=== PATIENT | male | born 1945 | race Caucasian/White ===

== ENCOUNTER → 2018-03-21 | Outpatient (CLI) | payer MEDICARE ==
--- NOTE | 2018-03-21 12:13 | CT ---
EXAMINATION TYPE: CT ankle LT wo con DATE OF EXAM: 03/21/2018 COMPARISON: NONE HISTORY: Left ankle pain CT DLP: [address] of the left ankle with reconstruction imaging. TECHNIQUE: Unenhanced CT of the left ankle was performed with bone and soft tissue window settings bonilla bmitted in the axial coronal and sagittal planes. At a separate workstation 3-D TR imaging was obtai cameron. FINDINGS: There is severe narrowing of the lateral tibiotalar joint space with widening noted medially. There i s underlying bony sclerosis and mild subchondral cyst formation. There is associated bony spur format ion. Loose body is seen anterior to the talar neck measuring 1.2 cm. Additional loose body noted at the la teral tibiotalar region measuring 4.1 mm. I do not see evidence for acute fracture. Soft tissue swelling noted laterally and to a lesser extent medially. No osseous lesions identified. IMPRESSION: 1. Advanced features of osteoarthritis. Tibiotalar instability is noted.
== END | disposition home or self-care (01) ==
LOC: RADCTMAIN 11:28
PROVIDERS: ATTEND Orthopaedic Surgery
DX: M19.072 Primary osteoarthritis, left ankle and foot (principal); M25.372 Other instability, left ankle; E11.9 Type 2 diabetes mellitus without complications

== ENCOUNTER → 2018-04-05 | Outpatient (CLI) | payer MEDICARE ==
--- NOTE | 2018-04-05 13:33 | CT ---
EXAMINATION TYPE: CT lower extremity LT wo con DATE OF EXAM: 04/05/2018 COMPARISON: CT left ankle March 21, 2018 HISTORY: Prophecy protocol. Valgus deformity left ankle. Pain, primary osteoarthritis, and edema also per order. Left valgus ankle arthritis also per order. CT DLP: 456 mGycm Automated exposure control for dose reduction was used. FINDINGS: Exam is for surgical planning enough for diagnostic purposes. Imaging of bilateral knees and left ank le is acquired. Asymmetric advanced degenerative changes to left ankle versus right ankle are redemon strated. There is moderate diffuse subcutaneous edema soft tissue swelling in both ankles again seen. Please refer to prior CT ankle report for complete details about degenerative findings. IMPRESSION: ABOVE
== END ==
LOC: RADCTMAIN 12:32
PROVIDERS: ATTEND Orthopaedic Surgery
DX: M79.89 Other specified soft tissue disorders (principal); M19.072 Primary osteoarthritis, left ankle and foot; E11.9 Type 2 diabetes mellitus without complications

== ENCOUNTER → 2018-04-11 | Outpatient (CLI) | payer MEDICARE ==
[2018-04-11 12:44] LABS: HCT 42.1 % (39.0-53.0); HGB 13.6 gm/dL (13.0-17.5); MCH 28.7 pg (25.0-35.0); MCHC 32.3 g/dL (31.0-37.0); MCV 88.7 fL (80.0-100.0); Platelet Count 216 k/uL (150-450); RBC 4.75 m/uL (4.30-5.90); RDW 14.1 % (11.5-15.5); WBC 6.5 k/uL (3.8-10.6)
[2018-04-11 12:54] LABS: Appearance,Urine Cloudy (Clear); Bilirubin,Urine Negative (Negative); Blood,Urine Negative (Negative); Color,Urine Yellow; Glucose,Urine (UA) Negative (Negative); Ketones,Urine Negative (Negative); Leukocyte Esterase,Urine Negative (Negative); Mucus,Urine Rare /hpf; Nitrite,Urine Negative (Negative); PH, Urine 5.5 (5.0-8.0); Protein,Urine Trace (Negative); Specific Gravity,Urine 1.017 (1.001-1.035); Urobilinogen,Urine <2.0 mg/dL (<2.0); WBC,Urine 1 /hpf (0-5)
[2018-04-11 12:56] LABS: INR 1.2 (<1.2); Prothrombin Time 11.6 sec (9.0-12.0)
[2018-04-11 13:17] LABS: Albumin 3.6 g/dL (3.5-5.0); Calcium 9.5 mg/dL (8.4-10.2); Potassium 4.3 mmol/L (3.5-5.1); Total Bilirubin 1.4 mg/dL (0.2-1.3)
== END | disposition home or self-care (01) ==
LOC: LABPAT 11:30
PROVIDERS: ATTEND Orthopaedic Surgery
DX: Z01.818 Encounter for other preprocedural examination (principal); Z01.812 Encounter for preprocedural laboratory examination; M19.072 Primary osteoarthritis, left ankle and foot
CPT/HCPCS: 36415; 80053; 81001; 85027; 85610; 85730; 87070; 93005

== ENCOUNTER 2018-04-24 13:00 | Inpatient (IN) | payer MEDICARE ==
[2018-04-25 11:44] VITALS: BMI 27.2
[2018-04-30] MEDS ORDERED: HYDROmorphone 0.5 MG/0.5 ML SYRINGE IVP PRN (16:53)
[2018-04-30] MEDS ORDERED: fentaNYL (PF) 50 MCG/ML 2 ML AMP IV PRN (16:53)
[2018-04-30] MEDS ORDERED: ONDANSETRON 4 MG/2 ML VIAL IVP PRN (16:53)
[2018-04-30] MEDS ORDERED: LACTATED RINGERS 1,000 ML IV SCH (17:00)
[2018-05-01] MEDS ORDERED: ceFAZolin IN SWFI 2 GM/20 ML SYRINGE IVP ONE (05:00)
[2018-05-01] MEDS ORDERED: fentaNYL (PF) 50 MCG/ML 2 ML AMP IV PRN (06:49)
[2018-05-01] MEDS ORDERED: LACTATED RINGERS 1,000 ML IV SCH ×2 (06:49→08:30)
[2018-05-01] MEDS ORDERED: ONDANSETRON 4 MG/2 ML VIAL IVP PRN ×2 (06:49→08:23)
[2018-05-01] MEDS ORDERED: HYDROmorphone 0.5 MG/0.5 ML SYRINGE IVP PRN ×3 (06:49→08:23)
[2018-05-01 07:11] LABS: Glucose,Whole Blood 111 mg/dL (75-99)
[2018-05-01] MEDS ORDERED: MIDAZOLAM 2 MG/2 ML VIAL IVP ONE (08:02)
[2018-05-01] MEDS ORDERED: HYDROcodone/APAP 5-325MG 1 EACH TAB PO PRN (08:23)
[2018-05-01] MEDS ORDERED: NALOXONE 0.4 MG/ML 1 ML VIAL IV PRN (08:23)
[2018-05-01] MEDS ORDERED: MAGNESIUM HYDROXIDE 2,400 MG/10 ML CUP PO PRN (08:23)
[2018-05-01] MEDS ORDERED: SODIUM CHLORIDE 0.9% 1,000 ML IV SCH (08:30)
[2018-05-01] MEDS ORDERED: ONDANSETRON 4 MG/2 ML VIAL ONE (08:50)
[2018-05-01] MEDS ORDERED: PROPOFOL 10 MG/ML 20 ML VIAL IV ONE (08:50)
[2018-05-01] MEDS ORDERED: LIDOCAINE 1% INJ 10MG/ML (20 ML MDV) ONE (08:50)
[2018-05-01] MEDS ORDERED: ePHEDrine SULFATE/0.9% NACL/PF 50 MG/5 ML SYRINGE IV ONE (08:50)
[2018-05-01] MEDS ORDERED: SUCCINYLCHOLINE CHLORIDE 100 MG/5 ML SYR IV ONE (08:50)
[2018-05-01] MEDS ORDERED: fentaNYL (PF) 50 MCG/ML 2 ML AMP ONE (08:50)
[2018-05-01] MEDS ORDERED: MIDAZOLAM 2 MG/2 ML VIAL ONE (08:50)
--- NOTE | 2018-05-01 09:21 | P.ONQ ---
Anesthesiology Proc Note - PNB - Peripheral Nerve Block Performed Left Popliteal Single Time Out Performed: Yes (803) Procedure Start Time: 08:04 Procedure Stop Time: 08:10 Indication: Acute Post-Operative Pain, Dx/Pain Location (Left Ankle Pain), Requested by physician Sedation Type: Sedate with meaningful contact maintained Preparation: Sterile Prep Position: Supine Catheter: None Needle Types: Touhy Needle Size: 50mm (2") Needle Gauge: 21 Injectate: 0.5% Ropivacaine (see comment for volume) (30ml)
[2018-05-01] MEDS ORDERED: LACTATED RINGERS 1,000 ML IV ONE (09:22)
--- NOTE | 2018-05-01 11:04 | FL ---
Fluoroscopy History: ORIF Left ankle ORIF. Dr. Lundberg. FL time 44 sec. 6 OR films scanned.
[2018-05-01 11:48] LABS: Glucose,Whole Blood 113 mg/dL (75-99)
--- NOTE | 2018-05-01 11:51 | P.OP ---
Date of Procedure: 05/01/18 Preoperative Diagnosis: 1. Left ankle arthritis 2. Left gastrocnemius equinus contracture Postoperative Diagnosis: Same Procedure(s) Performed: 1. Left total ankle arthroplasty with implant 2. Left gastrocnemius recession obtained through a separate incision 3. Application of short-leg splint by physician, left Implants: Adviqo Infinity Total Ankle Replacement size 4 tibial tray, size 3 INBONE talus, 7mm poly Anesthesia: GIGI Surgeon: Ga Lundberg Tube Trailer Filler #1: Judith Molina Estimated Blood Loss (ml): 25 IV fluids (ml): 1,200 Pathology: none sent Condition: stable Disposition: PACU Indications for Procedure: The patient is a 72-year-old male with a long-standing history of left valgus ankle arthritis and a mild pes planovalgus foot deformity. The patient failed a long course of nonsurgical treatment including activity modification, anti- inflammatory pain medication, orthotics, bracing, and physical therapy. He presented requesting surgery. My recommendation was to perform a total ankle arthroplasty and realign his foot as necessary with a medializing calcaneal osteotomy if the implant did not correct the valgus deformity at his ankle. We also discussed releasing his tight gastrocnemius. We discussed the potential risks and complications of surgery including but not limited to risk of anesthesia, risk of superficial infection, risk of deep infection, risk of delayed wound healing, risk of damage to local blood vessels or nerves, risk of deep infection at the implant, risk of intraoperative fractures, risk of postoperative fractures, risk of loosening of the implants, risk of catastrophic failure of the components, risk of chronic pain, risk of chronic swelling, risk of her inability to regain preinjury level of function, risk of DVT, risk of PE, risk of need for further surgery, and possibly loss of life or limb. The patient voiced his understanding of these potential complications and provided his verbal and written consent to go forward with surgery. Description of Procedure: The patient was identified in preop holding and the correct left leg was marked my initials. I reviewed the consent form with the patient health his questions were answered and the patient was then brought back to the operating room. He was positioned on the or table and a general anesthetic and preoperative antibiotics were administered. All bony prominences were well-padded. A tourniquet was applied to the proximal aspect of the left leg. A bone foam bump was placed under the buttock internally rotating the leg to neutral. A ramp was placed under the leg elevated to facilitate imaging. The contralateral extremity is held to the table with foam and tape. The left leg was then prepped and draped in standard sterile fashion. Prior to starting surgery timeout was performed identifying the correct patient, operative extremity, and procedure. The patient's leg was then elevated, exsanguinated with an Esmarch bandage, and the tourniquet was inflated to 250 mmHg. I began by performing an isolated gastrocnemius recession. A 3 cm incision was marked out over the posterior medial calf. Skin incision was made with a scalpel. Dissection was carried down to the superficial fascia which was incised longitudinally in line with the skin incision. I bluntly developed the interval between the gastrocnemius aponeurosis and superficial fascia. The sural nerve was identified to be adherent to the superficial fascia. The gastrocnemius aponeurosis was sharply released from lateral to medial in its entirety. There is a significant increase in dorsiflexion after the gastrocnemius and then released. The wound was then copiously irrigated and closed in layers. Attention was then turned to the ankle. Prior to starting C-arm fluoroscopy was brought in and I verified that the valgus deformity at the ankle is passively correctable to neutral. I then marked out a straight anterior incision over the ankle. Skin incision was made with a scalpel. Dissection was carried down carefully to the subcutaneous tissue. The superficial peroneal nerve was identified and carefully retracted. The extensor retinaculum was sharply incised. The interval between the tibialis anterior and EHL was identified. Crossing blood vessels over the capsule were controlled with electrocautery. The capsule was then incised longitudinally in line with the skin incision. Soft tissue was then sharply debrided off of the anterior surface of the distal tibia to facilitate placement of the custom guide. The custom guide was then fit into place finding it sweet spot. K wires were placed and the alignment was verified with fluoroscopy and confirmed against the preoperative templating. The custom block was then taken off and the cutting jig was placed over the wires. The tibial corners were drilled. The cutting guide was then screwed into place. The ankle was held in neutral and the talus was pinned through the guide. The K wires were cut flush with the guide. A reciprocating saw was then used to make the remaining tibial and talar cuts. The cutting guide was removed and the tibial bone was removed en bloc. The tear cut was not completed through the guide so I saw was used to cut the remaining talus by hand. Both cuts appeared flat. The wound was copiously irrigated. The tibial base tray was then placed over the remaining wires and sized to a standard. The broaches were then gently tapped starting with the posterior approach followed by the 2 anterior broaches. I then floated a size 3 talus component until it found it sweet spot. The position of the talar component was marked with a marker and then verified with fluoroscopy. It was pinned into place and the anterior pegs were drilled followed by the central slot for the stem. Final implants were then dispensed. The wound was copiously irrigated. The tibial baseplate was gently tapped into place and verified both visually and radiographically that it was fully seated. The talar component was then dispensed and gently tapped into place once again verifying visually and radiographically that it was fully seated. I trialed with a size 7 mm poly-which felt stable. A final 7 mm poly-was dispensed and placed between the implants. Final fluoroscopic images were taken including a true mortise view, varus stress, valgus stress, true lateral, maximum dorsiflexion, and maximum plantar flexion. The wound was once again copiously irrigated. The capsule was closed with interrupted 0 Vicryl. The retinaculum was closed with interrupted 0 Vicryl. The deep subcu was reapproximated using 2-0 Vicryl. The skin was closed with 3-0 nylon horizontal mattress stitches. The tourniquet was let down for total tourniquet time of 93 minutes. All instrument, sponge, and sharp counts were correct. A sterile dressing consisting of Betadine soaked Adaptic, 4 x 4, and web roll was applied. The patient was then awoken from his anesthetic, transferred to a gurney, and brought to PACU having cut the procedure well. Judith Molina PA-C was required a skilled assistant counsel for patient positioning, surgical exposure, retraction, placement of implants, closure of wound, and application of splint. Plan: The patient is going to be admitted for IV antibiotics, pain control, and an internal medicine consult. He is to remain strictly nonweightbearing on his operative leg. He can discharge home tomorrow or [place] when his pain is controlled.
[2018-05-01] MEDS ORDERED: PROMETHAZINE INJ 25 MG/ML 1 ML VIAL IVPB ONE (11:53)
[2018-05-01] MEDS: hydrALAZINE HCL 20 MG/ML 1 ML VIAL IVP ONE ×2 (11:56→12:19)
[2018-05-01] MEDS ORDERED: METOCLOPRAMIDE 5 MG/ML 2 ML VIAL IVP ONE (12:06)
--- NOTE | 2018-05-01 12:36 | XR ---
EXAMINATION TYPE: XR ankle limited LT DATE OF EXAM: 05/01/2018 COMPARISON: NONE HISTORY: Pain TECHNIQUE: 6 paper images are submitted. FINDINGS: Tibiotalar prosthesis is in place and appears to be appropriately seated. Alignment is ashvin omic. IMPRESSION: 1. Tibiotalar prosthesis.
[2018-05-01] MEDS: ENOXAPARIN 40 MG/0.4 ML SYRINGE SQ SCH (14:44)
[2018-05-01] MEDS ORDERED: NITROGLYCERIN SL TABS 0.4 MG TAB SUBLINGUAL PRN (16:13)
[2018-05-01 16:56] LABS: Glucose,Whole Blood 104 mg/dL (75-99)
[2018-05-01] MEDS: SODIUM CHLORIDE 0.9% 1,000 ML IV SCH (17:14)
[2018-05-01] MEDS: ceFAZolin IN SWFI 2 GM/20 ML SYRINGE IVP SCH (17:15)
[2018-05-01] MEDS ORDERED: HYDROmorphone 1 MG/ML 1 ML SYRINGE IVP PRN ×2 (17:29→17:30)
--- NOTE | 2018-05-01 17:36 | CONS ---
CONSULTATION DATE OF SERVICE: 05/01/2018. REASON FOR CONSULTATION: Advice regarding diabetes mellitus and other multiple medical issues requested by Dr. Lundberg. HISTORY OF PRESENT ILLNESS: This is a 72-year-old gentleman with a past medical history of multiple medical problems including diabetes mellitus, history of CAD, hyperlipidemia, hypertension, DJD being followed by Dr. Kelly in the outpatient setting underwent left total ankle arthroplasty with implant by Dr. Lundberg. There is no history of fever, rigors. No headache, loss of consciousness, seizures. Patient is complaining of minimal cough. PAST MEDICAL HISTORY: CAD, history of hypertension, DJD, history of CAD and stent. MEDICATIONS: Home medications are: 1. Glucophage 500 mg p.o. b.i.d. 2. Apresoline 100 mg p.o. b.i.d. 3. Benemid 500 mg p.o. q.a.m. 4. Nitrostat 0.4 mg p.r.n. 5. Cozaar 100 mg q.a.m. 6. Lipitor 80 mg q.a.m. 7. Aspirin 81 mg. 8. Coreg 3.25 mg q.h.s. and 6.5 mg q.a.m. ALLERGIES: NORVASC, CODEINE and DILAUDID. FAMILY HISTORY: History of myocardial infarction, suicide. SOCIAL HISTORY: History of occasional alcohol. No history of smoking. No history of substance abuse. REVIEW OF SYSTEMS: ENT: No diminished hearing or vision. CARDIOVASCULAR: As mentioned earlier. RESPIRATORY: Occasional cough. GI: No nausea. : No dysuria or retention. NERVOUS SYSTEM: No numbness or weakness. ALLERGY/IMMUNOLOGY: No asthma or hay fever. MUSCULOSKELETAL: As mentioned earlier. HEMATOLOGY: No history of anemia. ENDOCRINE: No history of diabetes or hypothyroidism. CONSTITUTIONAL: As mentioned. DERMATOLOGY: Negative. RHEUMATOLOGY: Negative. PSYCHIATRY: As mentioned earlier. PHYSICAL EXAMINATION: Alert, oriented, pulse 42, blood pressure 160/81, respiration 14, temperature normal, pulse ox 94% on 2 L. HEENT: Conjunctivae normal. Oral mucosa moist. NECK: No jugular venous distention. No carotid bruit. No lymph node enlargement. CARDIOVASCULAR: S1, S2. No S3, no S4. RESPIRATORY: Breath sounds diminished in the bases. No rhonchi, no crackles. ABDOMEN: Soft, nontender. No mass palpable. LEGS: Status post left ankle arthroplasty. NERVOUS SYSTEM: Higher functions as mentioned. Moves all 4 limbs. No focal motor deficits. LYMPHATICS: No lymphadenopathy in the neck, axillae, groin. SKIN: No ulcer, rashes or bleeding. LABS: Glucose 113. ASSESSMENT: 1. Status post left total ankle arthroplasty. 2. Diabetes mellitus type 2. 3. History of coronary artery disease, stent. 4. Bradycardia. 5. Hypertension. 6. Hyperlipidemia. 7. Hard of hearing. 8. History of rheumatic fever as a child. 9. History of gout. 10.History of hiatal hernia. 11.History of bladder cancer. 12.History of degenerative joint disease. RECOMMENDATIONS AND DISCUSSION: This 72-year-old gentleman who presented with multiple complex medical issues, at this time I recommend to continue current management and symptomatic treatment. Otherwise resume the home medications. Also recommend remote telemetry for 24 hours. Otherwise repeat labs may be done in the in the morning as well. Further recommendations to follow. Thank you Dr. Lundberg for letting us participate in the care of this patient. Patient may be asked to follow up with primary physician closely after discharge. MMODL / IJN: [id number] /
[2018-05-01] MEDS: INSULIN ASPART 100 UNIT/ML 1 ML 10 ML VIAL SQ SCH ×2 (18:02→21:44)
[2018-05-01] MEDS: HYDROcodone/APAP 5-325MG 1 EACH TAB PO PRN (20:23)
[2018-05-01] MEDS: hydrALAZINE HCL 50 MG TAB PO SCH (20:25)
[2018-05-01] MEDS: CARVEDILOL 3.125 MG TAB PO SCH (20:25)
[2018-05-01] MEDS: SENNOSIDES-DOCUSATE SODIUM 1 EACH TAB PO SCH (20:27)
[2018-05-01 20:39] LABS: Glucose,Whole Blood 139 mg/dL (75-99)
[2018-05-02] MEDS: ceFAZolin IN SWFI 2 GM/20 ML SYRINGE IVP SCH (00:29)
[2018-05-02] MEDS: MORPHINE SULFATE 2 MG/ML SYRINGE IVP PRN ×5 (01:09→21:20)
[2018-05-02] MEDS: HYDROcodone/APAP 5-325MG 1 EACH TAB PO PRN ×3 (02:34→15:55)
[2018-05-02] MEDS: SODIUM CHLORIDE 0.9% 1,000 ML IV SCH ×2 (05:40→21:02)
[2018-05-02 06:56] LABS: Glucose,Whole Blood 106 mg/dL (75-99)
[2018-05-02 07:12] LABS: Basophils % (A) 0 %; Eosinophils # (A) 0.1 k/uL (0-0.7); Eosinophils % (A) 1 %; HCT 39.1 % (39.0-53.0); HGB 12.6 gm/dL (13.0-17.5); Lymphocytes # (A) 0.6 k/uL (1.0-4.8); Lymphocytes % (A) 10 %; MCH 28.3 pg (25.0-35.0); MCHC 32.2 g/dL (31.0-37.0); Mean Platelet Volume 7.2; Monocytes # (A) 0.7 k/uL (0-1.0); Monocytes % (A) 12 %; Neutrophils # (A) 4.9 k/uL (1.3-7.7); Neutrophils % (A) 76 %; Platelet Count 201 k/uL (150-450); RBC 4.45 m/uL (4.30-5.90); RDW 13.8 % (11.5-15.5); WBC 6.4 k/uL (3.8-10.6)
[2018-05-02 07:26] LABS: Calcium 8.6 mg/dL (8.4-10.2); Potassium 3.8 mmol/L (3.5-5.1)
[2018-05-02] MEDS: INSULIN ASPART 100 UNIT/ML 1 ML 10 ML VIAL SQ SCH ×4 (08:39→20:20)
[2018-05-02] MEDS: LOSARTAN 50 MG TAB PO SCH (08:41)
[2018-05-02] MEDS: ASPIRIN 81 MG PO SCH (08:41)
[2018-05-02] MEDS: ATORVASTATIN 80 MG TAB PO SCH (08:42)
[2018-05-02] MEDS: CARVEDILOL 6.25 MG TAB PO SCH (08:42)
[2018-05-02] MEDS: MULTIVITAMINS, THERA 1 EACH TAB PO SCH (08:42)
[2018-05-02] MEDS: ENOXAPARIN 40 MG/0.4 ML SYRINGE SQ SCH (08:43)
[2018-05-02] MEDS: hydrALAZINE HCL 50 MG TAB PO SCH ×2 (08:44→20:20)
[2018-05-02 11:24] LABS: Glucose,Whole Blood 104 mg/dL (75-99)
[2018-05-02] MEDS: PROBENECID 500 MG TAB PO SCH (12:01)
--- NOTE | 2018-05-02 13:47 | P.PN ---
Subjective Progress Note Date: 05/02/18 Principal diagnosis: Left TAA Patient is seen at bedside this morning. He is postop day #1 from Left Total ankle arthroplasty. He has pain at the surgical site as expected but denies any new complaints. He denies numbness, tingling or calf pain. Review of systems is negative for fever, chills, chest pain, shortness of breath or other Objective - Vital Signs Vital signs: Vital Signs Temp 98.8 F 05/02/18 07:00 Pulse 54 L 05/02/18 07:00 Resp 16 05/02/18 07:00 BP 156/82 05/02/18 07:00 Pulse Ox 94 L 05/02/18 07:00 Intake & Output 05/01/18 05/02/18 05/02/18 18:59 06:59 18:59 Intake Total 1900 1080 200 Output Total 795 875 Balance 1105 205 200 Weight 86.183 kg Intake: IV 1900 Intake, IV Titration 600 Amount Sodium Chloride 0.9% 1, 600 000 ml @ 50 mls/hr IV . Q20H [facility] Rx#:[id number] Oral 480 200 Output: Urine 775 875 Estimated Blood Loss 20 Other: Voiding Method Indwelling Catheter Indwelling Catheter - Exam Inspection reveals a well padded splint in place. There is no active bleeding or drainage. Neurovascular status is intact throughout the lower extremity with motor and sensation fully intact distally. Right Calf is soft and nontender. Less than 2 second cap refill is present - Constitutional General appearance: Present: no acute distress - Psychiatric Psychiatric: Present: A&O x's 3, appropriate affect, intact judgment & insight - Labs CBC & Chem 7: 05/02/18 06:48 05/02/18 06:48 Labs: Abnormal Lab Results - Last 24 Hours (Table) 05/01/18 05/01/18 05/02/18 Range/Units 16:51 20:35 06:48 Hgb 12.6 L (13.0-17.5) gm/dL Lymphocytes # 0.6 L (1.0-4.8) k/uL Creatinine (0.66-1.25) mg/dL Glucose (74-99) mg/dL POC Glucose (mg/dL) 104 H 139 H (75-99) mg/dL 05/02/18 05/02/18 05/02/18 Range/Units 06:48 06:55 11:17 Hgb (13.0-17.5) gm/dL Lymphocytes # (1.0-4.8) k/uL Creatinine 1.36 H (0.66-1.25) mg/dL Glucose 104 H (74-99) mg/dL POC Glucose (mg/dL) 106 H 104 H (75-99) mg/dL Assessment and Plan (1) History of total replacement of left ankle Narrative/Plan: He will continue with routine postop orthopedic protocol including pain management, wound care, physical therapy, DVT prophylaxis and medical management. Expect that he will transfer to rehab in next few days. Current Visit: Yes Status: Acute Priority: Medium Code(s): Z96.662 - PRESENCE OF LEFT ARTIFICIAL ANKLE JOINT SNOMED Code(s): 958466297 Time with Patient: Less than 30
[2018-05-02 17:10] LABS: Glucose,Whole Blood 106 mg/dL (75-99)
[2018-05-02 17:22] LABS: Hemoglobin A1C 5.6 % (4.0-6.0)
[2018-05-02 19:44] LABS: Glucose,Whole Blood 156 mg/dL (75-99)
[2018-05-02] MEDS: SENNOSIDES-DOCUSATE SODIUM 1 EACH TAB PO SCH (20:20)
[2018-05-02] MEDS: CARVEDILOL 3.125 MG TAB PO SCH (20:21)
[2018-05-03] MEDS ORDERED: HYDROcodone/APAP 7.5-325MG 1 EACH TAB ONE (01:30)
[2018-05-03] MEDS ORDERED: ACETAMINOPHEN TAB 325 MG TAB ONE ×2 (01:30→02:28)
[2018-05-03 05:44] LABS: Appearance,Urine Clear (Clear); Bilirubin,Urine Negative (Negative); Blood,Urine Trace (Negative); Color,Urine Yellow; Glucose,Urine (UA) Negative (Negative); Ketones,Urine 1+ (Negative); Leukocyte Esterase,Urine Moderate (Negative); Mucus,Urine Rare /hpf; Nitrite,Urine Negative (Negative); Protein,Urine Trace (Negative); RBC,Urine 36 /hpf (0-5); Specific Gravity,Urine 1.011 (1.001-1.035); Urobilinogen,Urine <2.0 mg/dL (<2.0); WBC,Urine 13 /hpf (0-5)
--- NOTE | 2018-05-03 07:10 | XR ---
EXAMINATION TYPE: XR chest 2V DATE OF EXAM: 05/03/2018 COMPARISON: Chest x-ray January 19, 2016 HISTORY: Postoperative fever. TECHNIQUE: Frontal and lateral views of the chest are obtained. FINDINGS: Somewhat low lung volumes with slightly elevated right hemidiaphragm is redemonstrated. Th ere is no suspicious new focal air space opacity, pleural effusion, or pneumothorax seen. The cardia c silhouette size remains enlarged with atherosclerotic and ectatic aorta. Anterior fusion plate and cervical spine is redemonstrated IMPRESSION: Overall stable findings, cardiomegaly and low lung volumes with elevated right hemidiaph ragm but no new suspicious focal infiltrate present.
[2018-05-03 07:25] LABS: Glucose,Whole Blood 103 mg/dL (75-99)
[2018-05-03] MEDS: HYDROcodone/APAP 7.5-325MG 1 EACH TAB PO PRN ×3 (09:08→21:42)
[2018-05-03] MEDS: ENOXAPARIN 40 MG/0.4 ML SYRINGE SQ SCH (09:08)
[2018-05-03] MEDS: metFORMIN 500 MG TAB PO SCH ×2 (09:13→17:56)
[2018-05-03] MEDS: LOSARTAN 50 MG TAB PO SCH (09:13)
[2018-05-03] MEDS: PROBENECID 500 MG TAB PO SCH (09:13)
[2018-05-03] MEDS: ASPIRIN 81 MG PO SCH (09:13)
[2018-05-03] MEDS: CARVEDILOL 6.25 MG TAB PO SCH (09:13)
[2018-05-03] MEDS: ATORVASTATIN 80 MG TAB PO SCH (09:13)
[2018-05-03] MEDS: INSULIN ASPART 100 UNIT/ML 1 ML 10 ML VIAL SQ SCH ×4 (09:36→20:49)
[2018-05-03] MEDS: hydrALAZINE HCL 50 MG TAB PO SCH ×2 (09:42→20:48)
--- NOTE | 2018-05-03 11:00 | P.DS ---
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 He had failed conservative measures as an outpatient and desired to proceed with elective surgery after given informed consent. He underwent the above procedure which she tolerated well without complication. Postoperative hospital course has remained without complication. On day of discharge he is afebrile, vital signs stable, labs within acceptable ranges, tolerating by mouth meds and diet, voiding without difficulty, positive flatus, denies abdominal pain or calf pain, pain is controlled on oral pain medication and has no new complaints. Wound is benign, neurovascular status is intact, calf is soft and nontender, abdomen soft and nontender. Review of systems is negative for numbness, tingling, fever, chills, chest pain, shortness breath, nausea, vomiting, dizziness, headaches, slurred speech or other. Current Visit: Yes Status: Acute Priority: Medium Procedures: Left total ankle arthroplasty Patient Condition at Discharge: Good Plan - Discharge Summary Discharge Rx Participant: Yes New Discharge Prescriptions: New Aspirin 325 mg PO BID #60 tab Docusate [Colace] 100 mg PO BID #60 capsule HYDROcodone/APAP 7.5-325MG [[place] 7.5-325] 1 - 2 tab PO Q6HR PRN #52 tab PRN Reason: Pain No Action hydrALAZINE HCL [Apresoline] 100 mg PO BID Probenecid [Benemid] 500 mg PO QAM Nitroglycerin Sl Tabs [Nitrostat] 0.4 mg SUBLINGUAL Q5M PRN #25 tab PRN Reason: Chest Pain metFORMIN HCL [Glucophage] 500 mg PO BID #0 Losartan Potassium [Cozaar] 100 mg PO QAM Aspirin [Adult Low Dose Aspirin EC] 81 mg PO DAILY Atorvastatin [Lipitor] 80 mg PO QAM Carvedilol [Coreg] 6.25 mg PO QAM Carvedilol [Coreg] 3.25 mg PO HS Discharge Medication List Probenecid [Benemid] 500 mg PO QAM 01/19/16 [History] hydrALAZINE HCL [Apresoline] 100 mg PO BID 01/19/16 [History] Nitroglycerin Sl Tabs [Nitrostat] 0.4 mg SUBLINGUAL Q5M PRN #25 tab 01/21/16 [Rx ] metFORMIN HCL [Glucophage] 500 mg PO BID #0 01/21/16 [Rx] Aspirin [Adult Low Dose Aspirin EC] 81 mg PO DAILY 02/11/16 [History] Atorvastatin [Lipitor] 80 mg PO QAM 02/11/16 [History] Losartan Potassium [Cozaar] 100 mg PO QAM 02/11/16 [History] Carvedilol [Coreg] 3.25 mg PO HS 05/01/18 [History] Carvedilol [Coreg] 6.25 mg PO QAM 05/01/18 [History] Aspirin 325 mg PO BID #60 tab 05/03/18 [Rx] Docusate [Colace] 100 mg PO BID #60 capsule 05/03/18 [Rx] HYDROcodone/APAP 7.5-325MG [[place] 7.5-325] 1 - 2 tab PO Q6HR PRN #52 tab [Rx] Follow up Appointment(s)/Referral(s): Ga Lundberg MD [Medical Doctor] - 1 Week Activity/Diet/Wound Care/Special Instructions: Keep splint clean and dry Take meds as directed Follow-up with Dr. Lundberg in office Non weightbearing Elevate leg Discharge Disposition: TRANSFER TO SNF/ECF
[2018-05-03 11:10] LABS: Glucose,Whole Blood 125 mg/dL (75-99)
[2018-05-03] MEDS: MULTIVITAMINS, THERA 1 EACH TAB PO SCH (12:08)
--- NOTE | 2018-05-03 12:29 | P.PN ---
Subjective Progress Note Date: 05/02/18 Principal diagnosis: Left ankle arthritis; left total ankle arthroplasty with implant 72-year-old male with a long-standing history of left valgus ankle arthritis and a mild pes planovalgus foot deformity. The patient failed a long course of nonsurgical treatment including activity modification, anti-inflammatory pain medication, orthotics, bracing, and physical therapy. He presented requesting surgery. My recommendation was to perform a total ankle arthroplasty and realign his foot as necessary with a medializing calcaneal osteotomy if the implant did not correct the valgus deformity at his ankle. We also discussed releasing his tight gastrocnemius. We discussed the potential risks and complications of surgery including but not limited to risk of anesthesia, risk of superficial infection, risk of deep infection, risk of delayed wound healing , risk of damage to local blood vessels or nerves, risk of deep infection at the implant, risk of intraoperative fractures, risk of postoperative fractures, risk of loosening of the implants, risk of catastrophic failure of the components, risk of chronic pain, risk of chronic swelling, risk of her inability to regain preinjury level of function, risk of DVT, risk of PE, risk of need for further surgery, and possibly loss of life or limb. The patient voiced his understanding of these potential complications and provided his verbal and written consent to go forward with surgery. Objective - Vital Signs Vital signs: Vital Signs Temp 98.8 F 05/02/18 07:00 Pulse 54 L 05/02/18 07:00 Resp 16 05/02/18 07:00 BP 156/82 05/02/18 07:00 Pulse Ox 94 L 05/02/18 07:00 Intake & Output 05/01/18 05/02/18 05/02/18 18:59 06:59 18:59 Intake Total 1900 1080 200 Output Total 795 875 Balance 1105 205 200 Weight 86.183 kg Intake: IV 1900 Intake, IV Titration 600 Amount Sodium Chloride 0.9% 1, 600 000 ml @ 50 mls/hr IV . Q20H [facility] Rx#:[id number] Oral 480 200 Output: Urine 775 875 Estimated Blood Loss 20 Other: Voiding Method Indwelling Catheter Indwelling Catheter - Exam - Constitutional General appearance: Present: average body habitus, cooperative, no acute distress - EENT Eyes: Present: anicteric sclerae, EOMI, PERRLA, normal appearance ENT: Present: hearing grossly normal, normal oropharynx Ears: bilateral: normal - Neck Neck: Present: normal ROM. Absent: lymphadenopathy, rigidity, thyromegaly Carotids: negative: bruit present Thyroid: bilateral: normal size, negative: enlarged, nodule - Respiratory Respiratory: bilateral: CTA, negative: rales, rhonchi, wheezing - Cardiovascular Rhythm: regular Heart sounds: normal: S1, S2 Abnormal Heart Sounds: Absent: systolic murmur, diastolic murmur - Gastrointestinal General gastrointestinal: Present: normal bowel sounds, soft. Absent: distended , organomegaly, tenderness - Genitourinary Genitourinary Comment(s): deferred - Integumentary Integumentary: Present: normal turgor. Absent: jaundiced, rash, ulcer - Neurologic Neurologic: Present: CNII-XII intact. Absent: focal deficits - Musculoskeletal Musculoskeletal: Present: gait normal, strength equal bilaterally - Psychiatric Psychiatric: Present: A&O x's 3, appropriate affect, intact judgment & insight - Labs CBC & Chem 7: 05/02/18 06:48 05/02/18 06:48 Labs: Abnormal Lab Results - Last 24 Hours (Table) 05/01/18 05/01/18 05/01/18 Range/Units 11:46 16:51 20:35 Hgb (13.0-17.5) gm/dL Lymphocytes # (1.0-4.8) k/uL Creatinine (0.66-1.25) mg/dL Glucose (74-99) mg/dL POC Glucose (mg/dL) 113 H 104 H 139 H (75-99) mg/dL 05/02/18 05/02/18 05/02/18 Range/Units 06:48 06:48 06:55 Hgb 12.6 L (13.0-17.5) gm/dL Lymphocytes # 0.6 L (1.0-4.8) k/uL Creatinine 1.36 H (0.66-1.25) mg/dL Glucose 104 H (74-99) mg/dL POC Glucose (mg/dL) 106 H (75-99) mg/dL Assessment and Plan Assessment: 1. Status post left total ankle arthroplasty 2. Diabetes mellitus type 2 3. Coronary artery disease status post stent placement 4. Hypertension 5. Hyperlipidemia 6. History of rheumatic fever as a child 7. Extensive degenerative joint disease Plan; patient has multiple complex medical issues; we plan to continue current management at this time; patient is to increase activity and work with physical therapy for anticipated discharge in next 24-48 hours; patient's blood pressure and blood sugars remain stable; we will continue with current medications Time with Patient: Greater than 30
[2018-05-03 16:35] LABS: Glucose,Whole Blood 118 mg/dL (75-99)
[2018-05-03 20:31] LABS: Glucose,Whole Blood 140 mg/dL (75-99)
[2018-05-03] MEDS: CARVEDILOL 3.125 MG TAB PO SCH (20:48)
[2018-05-03] MEDS: SENNOSIDES-DOCUSATE SODIUM 1 EACH TAB PO SCH (21:35)
[2018-05-03] MEDS: SODIUM CHLORIDE 0.9% 1,000 ML IV SCH (21:42)
[2018-05-03] MEDS: cefTRIAXone IN SWFI 1,000 MG/10 ML SYRINGE IVP SCH (21:43)
[2018-05-03] MEDS ORDERED: CEPHALEXIN 500 MG CAP PO SCH (22:00)
[2018-05-04 06:42] LABS: Basophils % (A) 0 %; Eosinophils # (A) 0.1 k/uL (0-0.7); Eosinophils % (A) 2 %; HCT 39.3 % (39.0-53.0); HGB 12.8 gm/dL (13.0-17.5); Lymphocytes # (A) 0.6 k/uL (1.0-4.8); Lymphocytes % (A) 9 %; MCH 28.2 pg (25.0-35.0); MCHC 32.7 g/dL (31.0-37.0); MCV 86.4 fL (80.0-100.0); Mean Platelet Volume 7.5; Monocytes # (A) 0.7 k/uL (0-1.0); Monocytes % (A) 10 %; Neutrophils # (A) 5.2 k/uL (1.3-7.7); Neutrophils % (A) 77 %; Platelet Count 202 k/uL (150-450); RBC 4.55 m/uL (4.30-5.90); RDW 13.5 % (11.5-15.5); WBC 6.8 k/uL (3.8-10.6)
[2018-05-04 07:04] LABS: Glucose,Whole Blood 114 mg/dL (75-99)
[2018-05-04] MEDS: CARVEDILOL 6.25 MG TAB PO SCH (07:48)
[2018-05-04] MEDS: metFORMIN 500 MG TAB PO SCH ×2 (07:48→18:06)
[2018-05-04] MEDS: ATORVASTATIN 80 MG TAB PO SCH (07:48)
[2018-05-04] MEDS: ENOXAPARIN 40 MG/0.4 ML SYRINGE SQ SCH (07:48)
[2018-05-04] MEDS: LOSARTAN 50 MG TAB PO SCH (07:49)
[2018-05-04] MEDS: ASPIRIN 81 MG PO SCH (07:49)
[2018-05-04] MEDS: hydrALAZINE HCL 50 MG TAB PO SCH ×2 (07:49→20:11)
[2018-05-04] MEDS: PROBENECID 500 MG TAB PO SCH (07:50)
[2018-05-04] MEDS: INSULIN ASPART 100 UNIT/ML 1 ML 10 ML VIAL SQ SCH ×4 (07:51→20:23)
[2018-05-04] MEDS: cefTRIAXone IN SWFI 1,000 MG/10 ML SYRINGE IVP SCH (08:00)
[2018-05-04] MEDS: HYDROcodone/APAP 7.5-325MG 1 EACH TAB PO PRN ×2 (08:52→18:06)
[2018-05-04] MEDS: SODIUM CHLORIDE 0.9% 1,000 ML IV SCH (09:59)
[2018-05-04 11:33] LABS: Glucose,Whole Blood 127 mg/dL (75-99)
[2018-05-04] MEDS: MULTIVITAMINS, THERA 1 EACH TAB PO SCH (12:55)
[2018-05-04 16:09] LABS: Calcium 8.5 mg/dL (8.4-10.2); Magnesium 1.8 mg/dL (1.6-2.3); Potassium 3.6 mmol/L (3.5-5.1)
[2018-05-04 16:27] LABS: Basophils % (A) 0 %; Eosinophils # (A) 0.1 k/uL (0-0.7); Eosinophils % (A) 2 %; HCT 36.3 % (39.0-53.0); HGB 12.1 gm/dL (13.0-17.5); Lymphocytes # (A) 0.6 k/uL (1.0-4.8); Lymphocytes % (A) 10 %; MCH 28.7 pg (25.0-35.0); MCHC 33.3 g/dL (31.0-37.0); MCV 86.4 fL (80.0-100.0); Mean Platelet Volume 7.4; Monocytes # (A) 0.7 k/uL (0-1.0); Monocytes % (A) 11 %; Neutrophils # (A) 4.9 k/uL (1.3-7.7); Neutrophils % (A) 76 %; Platelet Count 188 k/uL (150-450); RDW 13.6 % (11.5-15.5); WBC 6.4 k/uL (3.8-10.6)
[2018-05-04 17:31] LABS: Glucose,Whole Blood 105 mg/dL (75-99)
[2018-05-04] MEDS: CARVEDILOL 3.125 MG TAB PO SCH (20:11)
[2018-05-04] MEDS: SENNOSIDES-DOCUSATE SODIUM 1 EACH TAB PO SCH (20:11)
[2018-05-04 20:14] LABS: Glucose,Whole Blood 151 mg/dL (75-99)
[2018-05-05] MEDS: HYDROcodone/APAP 7.5-325MG 1 EACH TAB PO PRN ×4 (03:51→23:41)
[2018-05-05 07:07] LABS: Glucose,Whole Blood 108 mg/dL (75-99)
[2018-05-05] MEDS: INSULIN ASPART 100 UNIT/ML 1 ML 10 ML VIAL SQ SCH ×4 (07:45→21:14)
[2018-05-05] MEDS: CARVEDILOL 6.25 MG TAB PO SCH (07:52)
[2018-05-05] MEDS: ATORVASTATIN 80 MG TAB PO SCH (07:52)
[2018-05-05] MEDS: ASPIRIN 81 MG PO SCH (07:52)
[2018-05-05] MEDS: metFORMIN 500 MG TAB PO SCH ×2 (07:52→17:41)
[2018-05-05] MEDS: ENOXAPARIN 40 MG/0.4 ML SYRINGE SQ SCH (07:52)
[2018-05-05] MEDS: LOSARTAN 50 MG TAB PO SCH (07:53)
[2018-05-05] MEDS: hydrALAZINE HCL 50 MG TAB PO SCH ×2 (07:53→19:58)
[2018-05-05] MEDS: PROBENECID 500 MG TAB PO SCH (07:53)
--- NOTE | 2018-05-05 08:54 | P.PN ---
Subjective Progress Note Date: 05/05/18 Principal diagnosis: Status post left total ankle arthroplasty This is a 72 year-old male post left total ankle arthroplasty. This is post-op day 4. The patient was evaluated in the recliner at the bedside today. The patient denies nausea, vomiting, abdominal pain, shortness of breath, and chest pain this morning. He states his pain is controlled at this time. The patient has been up with physical therapy and ambulated in the hallway. Objective - Vital Signs Vital signs: Vital Signs Temp 98.1 F 05/05/18 07:39 Pulse 97 05/05/18 07:39 Resp 20 05/05/18 07:39 BP 173/90 05/05/18 07:39 Pulse Ox 95 05/05/18 07:39 Intake & Output 05/04/18 05/05/18 05/05/18 18:59 06:59 18:59 Intake Total 240 180 Output Total 200 Balance 240 -20 Intake: Oral 240 180 Output: Urine 200 Other: Voiding Method Urinal # Voids 2 1 - Exam The patient does not appear in acute distress. Alert and orientated x3. Dressing and splint are clean,dry, and intact. He is able to wiggle his toes freely without difficulty. His thigh is soft and nontender. Sensation and circulatory status is intact. - Labs CBC & Chem 7: 05/04/18 15:24 05/04/18 15:24 Labs: Abnormal Lab Results - Last 24 Hours (Table) 05/04/18 05/04/18 05/04/18 Range/Units 11:31 15:24 15:24 RBC 4.20 L (4.30-5.90) m/uL Hgb 12.1 L (13.0-17.5) gm/dL Hct 36.3 L (39.0-53.0) % Lymphocytes # 0.6 L (1.0-4.8) k/uL Sodium 134 L (137-145) mmol/L Glucose 151 H (74-99) mg/dL POC Glucose (mg/dL) 127 H (75-99) mg/dL 05/04/18 05/04/18 05/05/18 Range/Units 17:29 20:12 07:04 RBC (4.30-5.90) m/uL Hgb (13.0-17.5) gm/dL Hct (39.0-53.0) % Lymphocytes # (1.0-4.8) k/uL Sodium (137-145) mmol/L Glucose (74-99) mg/dL POC Glucose (mg/dL) 105 H 151 H 108 H (75-99) mg/dL Microbiology - Last 24 Hours (Table) 05/03/18 01:20 Blood Culture - Preliminary Blood No Growth after 48 hours 05/03/18 01:05 Blood Culture - Preliminary Blood No Growth after 48 hours 05/03/18 01:15 Urine Culture - Final Urine,Voided Assessment and Plan (1) Osteoarthritis of left ankle Current Visit: Yes Status: Acute Code(s): M19.072 - PRIMARY OSTEOARTHRITIS, LEFT ANKLE AND FOOT SNOMED Code(s): 986214387794631 (2) History of total replacement of left ankle Current Visit: Yes Status: Acute Priority: Medium Code(s): Z96.662 - PRESENCE OF LEFT ARTIFICIAL ANKLE JOINT SNOMED Code(s): 890985748 Plan: 1. Continue pain control 2. Anticoagulation with Lovenox 3. Continue physical therapy and ambulation, non-weightbearing left leg 4. Anticipate discharge to skilled rehab tomorrow
[2018-05-05 11:24] LABS: Glucose,Whole Blood 119 mg/dL (75-99)
[2018-05-05] MEDS: MULTIVITAMINS, THERA 1 EACH TAB PO SCH (12:27)
[2018-05-05] MEDS: SODIUM CHLORIDE 0.9% 1,000 ML IV SCH (12:30)
[2018-05-05] MEDS: cefTRIAXone IN SWFI 1,000 MG/10 ML SYRINGE IVP SCH (15:30)
--- NOTE | 2018-05-05 15:34 | P.PN ---
Subjective Patient is admitted for left knee arthroplasty patient is being treated for urinary tract infection patient does not have any symptoms of UTI patient received the more than 3 days of antiemetic already patient IV line asked on but I do not believe he'll require any more antibiotics. Patient heart rate on and off is going up and down with the activity patient with junctional rhythm we will increase the dose of beta marianne. Constitutional: Denied any fatigue denied any fever. Cardio vascular: denied any chest pain, palpitations Gastrointestinal denied any nausea vomiting Pulmonary: Denied any shortness of breath cough Neurologic denied any new focal deficits Objective - Vital Signs Vital signs: Vital Signs Temp 98.1 F 05/05/18 07:39 Pulse 97 05/05/18 07:39 Resp 20 05/05/18 07:39 BP 173/90 05/05/18 07:39 Pulse Ox 95 05/05/18 07:39 Intake & Output 05/04/18 05/05/18 05/05/18 18:59 06:59 18:59 Intake Total 240 180 400 Output Total 200 Balance 240 -20 400 Intake: Intake, IV Titration 400 Amount Sodium Chloride 0.9% 1, 400 000 ml @ 50 mls/hr IV . Q20H [facility] Rx#:[id number] Oral 240 180 Output: Urine 200 Other: Voiding Method Urinal Toilet # Voids 2 1 2 - Exam PHYSICAL EXAMINATION: GENERAL: The patient is alert and oriented x3, not in any acute distress. Well developed, well nourished. HEENT: Pupils are round and equally reacting to light. EOMI. No scleral icterus. No conjunctival pallor. Normocephalic, atraumatic. No pharyngeal erythema. No thyromegaly. CARDIOVASCULAR: S1 and S2 present. No murmurs, rubs, or gallops. PULMONARY: Chest is clear to auscultation, no wheezing or crackles. ABDOMEN: Soft, nontender, nondistended, normoactive bowel sounds. No palpable organomegaly. MUSCULOSKELETAL: No joint swelling or deformity. EXTREMITIES: No cyanosis, clubbing, or pedal edema. NEUROLOGICAL: Gross neurological examination did not reveal any focal deficits. SKIN: No rashes. - Labs CBC & Chem 7: 05/04/18 15:24 05/04/18 15:24 Labs: Abnormal Lab Results - Last 24 Hours (Table) 05/04/18 05/04/1818 Range/Units 15:24 15:24 17:29 RBC 4.20 L (4.30-5.90) m/uL Hgb 12.1 L (13.0-17.5) gm/dL Hct 36.3 L (39.0-53.0) % Lymphocytes # 0.6 L (1.0-4.8) k/uL Sodium 134 L (137-145) mmol/L Glucose 151 H (74-99) mg/dL POC Glucose (mg/dL) 105 H (75-99) mg/dL 05/04/18 05/05/18 05/05/18 Range/Units 20:12 07:04 11:22 RBC (4.30-5.90) m/uL Hgb (13.0-17.5) gm/dL Hct (39.0-53.0) % Lymphocytes # (1.0-4.8) k/uL Sodium (137-145) mmol/L Glucose (74-99) mg/dL POC Glucose (mg/dL) 151 H 108 H 119 H (75-99) mg/dL Microbiology - Last 24 Hours (Table) 05/03/18 01:20 Blood Culture - Preliminary Blood No Growth after 48 hours 05/03/18 01:05 Blood Culture - Preliminary Blood No Growth after 48 hours 05/03/18 01:15 Urine Culture - Final Urine,Voided Assessment and Plan Plan: Assessment and Plan Assessment: 1. Status post left total ankle arthroplasty 2. Diabetes mellitus type 2 3. Coronary artery disease status post stent placement 4. Hypertension 5. Hyperlipidemia 6. History of rheumatic fever as a child 7. Extensive degenerative joint disease 8: Tachycardia with junctional rhythm. There is a dose of beta marianne. 9 most probably asymptomatic bacteriuria low probability of UTI patient completed antibiotic therapy for UTI. Continue present medications decreasing the dose of Coreg creatinine improved, continue to follow.
[2018-05-05 17:34] LABS: Glucose,Whole Blood 130 mg/dL (75-99)
[2018-05-05] MEDS: CARVEDILOL 12.5 MG TAB PO SCH (17:41)
[2018-05-05] MEDS: SENNOSIDES-DOCUSATE SODIUM 1 EACH TAB PO SCH (19:58)
[2018-05-05 20:16] LABS: Glucose,Whole Blood 114 mg/dL (75-99)
[2018-05-06 06:55] LABS: Glucose,Whole Blood 113 mg/dL (75-99)
[2018-05-06 07:08] VITALS: BP 174/86; PULSE 54; RESP 14; TEMP 98.4
[2018-05-06] MEDS: INSULIN ASPART 100 UNIT/ML 1 ML 10 ML VIAL SQ SCH (07:25)
[2018-05-06] MEDS: SODIUM CHLORIDE 0.9% 1,000 ML IV SCH (07:30)
[2018-05-06] MEDS: HYDROcodone/APAP 7.5-325MG 1 EACH TAB PO PRN (07:32)
[2018-05-06] MEDS: metFORMIN 500 MG TAB PO SCH (07:33)
[2018-05-06] MEDS: ENOXAPARIN 40 MG/0.4 ML SYRINGE SQ SCH (07:33)
[2018-05-06] MEDS: MULTIVITAMINS, THERA 1 EACH TAB PO SCH (07:34)
[2018-05-06] MEDS: LOSARTAN 50 MG TAB PO SCH (07:34)
[2018-05-06] MEDS: PROBENECID 500 MG TAB PO SCH (07:34)
[2018-05-06] MEDS: hydrALAZINE HCL 50 MG TAB PO SCH (07:34)
[2018-05-06] MEDS: CARVEDILOL 12.5 MG TAB PO SCH (07:34)
[2018-05-06] MEDS: ATORVASTATIN 80 MG TAB PO SCH (07:35)
[2018-05-06] MEDS: ASPIRIN 81 MG PO SCH (07:35)
--- NOTE | 2018-05-06 08:29 | P.DS ---
Providers Date of admission: 05/01/18 06:34 Expected date of discharge: 05/06/18 Attending physician: Ga Lundberg Consults: 05/01/18 15:56 Consult Physician Routine Consulting Provider: Binu Santos Consult Reason/Comments: medical/ bus info consultant for dr. Zepeda Do you want consulting provider notified?: Yes Primary care physician: Vernon Kelly - Discharge Diagnosis(es) (1) Osteoarthritis of left ankle Current Visit: Yes Status: Acute (2) History of total replacement of left ankle Current Visit: Yes Status: Acute Priority: Medium Hospital Course: This is a pleasant 72-year-old male last seen in our office with complaints of left ankle pain. Patient has known history of osteoarthritis of the left ankle and presented to discuss options. After discussion and consideration, the patient elected to proceed with a left total ankle arthroplasty. Patient was seen preoperatively, and medically cleared for surgery by his primary care physician. Patient was admitted to [facility] underwent left total ankle arthroplasty on 05/01/[address] Lundberg. The procedure was performed without complications or sequelae. The patient is seen and evaluated at bedside today. Pain is well-controlled. Patient has no new complaints today and denies any fevers, chills, nausea, vomiting, or shortness of breath. Vital signs are stable. Dressing and splint are clean dry and intact. Thigh is soft and nontender. Patient is able to wiggle his toes without difficulty. Patient' s left lower extremity is neurovascularly intact. The patient is orthopedically stable for discharge to skilled rehab today. Pertinent Studies: Laboratory Tests 05/04/18 05/04/18 15:24 15:24 WBC 6.4 RBC 4.20 L Hgb 12.1 L Hct 36.3 L Sodium 134 L Patient Condition at Discharge: Stable Plan - Discharge Summary Discharge Rx Participant: Yes New Discharge Prescriptions: New Aspirin 325 mg PO BID #60 tab Docusate [Colace] 100 mg PO BID #60 capsule HYDROcodone/APAP 7.5-325MG [[place] 7.5-325] 1 - 2 tab PO Q6HR PRN #52 tab PRN Reason: Pain Carvedilol [Coreg*] 12.5 mg PO BID-W/MEALS #60 tab Continue hydrALAZINE HCL [Apresoline] 100 mg PO BID Probenecid [Benemid] 500 mg PO QAM Nitroglycerin Sl Tabs [Nitrostat] 0.4 mg SUBLINGUAL Q5M PRN #25 tab PRN Reason: Chest Pain metFORMIN HCL [Glucophage] 500 mg PO BID #0 Losartan Potassium [Cozaar] 100 mg PO QAM Aspirin [Adult Low Dose Aspirin EC] 81 mg PO DAILY Atorvastatin [Lipitor] 80 mg PO QAM Discontinued Carvedilol [Coreg] 6.25 mg PO QAM Carvedilol [Coreg] 3.25 mg PO HS Discharge Medication List Probenecid [Benemid] 500 mg PO QAM 01/19/16 [History] hydrALAZINE HCL [Apresoline] 100 mg PO BID 01/19/16 [History] Nitroglycerin Sl Tabs [Nitrostat] 0.4 mg SUBLINGUAL Q5M PRN #25 tab 01/21/16 [Rx ] metFORMIN HCL [Glucophage] 500 mg PO BID #0 01/21/16 [Rx] Aspirin [Adult Low Dose Aspirin EC] 81 mg PO DAILY 02/11/16 [History] Atorvastatin [Lipitor] 80 mg PO QAM 02/11/16 [History] Losartan Potassium [Cozaar] 100 mg PO QAM 02/11/16 [History] Aspirin 325 mg PO BID #60 tab 05/03/18 [Rx] Docusate [Colace] 100 mg PO BID #60 capsule 05/03/18 [Rx] HYDROcodone/APAP 7.5-325MG [[place] 7.5-325] 1 - 2 tab PO Q6HR PRN #52 tab [Rx] Carvedilol [Coreg*] 12.5 mg PO BID-W/MEALS #60 tab 05/05/18 [Rx] Follow up Appointment(s)/Referral(s): Ga Lundberg MD [Medical Doctor] - 05/10/18 8:45 am Activity/Diet/Wound Care/Special Instructions: Keep splint clean and dry Take meds as directed Follow-up with Dr. Lundberg in office Non weightbearing Elevate leg Discharge Disposition: TRANSFER TO SNF/ECF
[2018-05-06 11:37] LABS: Glucose,Whole Blood 118 mg/dL (75-99)
--- NOTE | 2018-05-06 11:39 | P.PN ---
Subjective Patient is admitted for left knee arthroplasty patient is being treated for urinary tract infection patient does not have any symptoms of UTI patient received the more than 3 days of antiemetic already patient IV line asked on but I do not believe he'll require any more antibiotics. Patient heart rate on and off is going up and down with the activity patient with junctional rhythm we will increase the dose of beta marianne. 05/06/2018 No overnight events patient heart rate is fairly well controlled now Constitutional: Denied any fatigue denied any fever. Cardio vascular: denied any chest pain, palpitations Gastrointestinal denied any nausea vomiting Pulmonary: Denied any shortness of breath cough Neurologic denied any new focal deficits Objective - Vital Signs Vital signs: Vital Signs Temp 98.4 F 05/06/18 07:00 Pulse 54 L 05/06/18 07:00 Resp 14 05/06/18 07:00 BP 174/86 05/06/18 07:00 Pulse Ox 95 05/06/18 07:10 Intake & Output 05/05/18 05/06/18 05/06/18 18:59 06:59 18:59 Intake Total 400 200 Balance 400 200 Intake: Intake, IV Titration 400 Amount Sodium Chloride 0.9% 1, 400 000 ml @ 50 mls/hr IV . Q20H [facility] [place] Rx#:[id number] Oral 200 Other: Voiding Method Toilet Toilet # Voids 2 2 - Exam PHYSICAL EXAMINATION: GENERAL: The patient is alert and oriented x3, not in any acute distress. Well developed, well nourished. HEENT: Pupils are round and equally reacting to light. EOMI. No scleral icterus. No conjunctival pallor. Normocephalic, atraumatic. No pharyngeal erythema. No thyromegaly. CARDIOVASCULAR: S1 and S2 present. No murmurs, rubs, or gallops. PULMONARY: Chest is clear to auscultation, no wheezing or crackles. ABDOMEN: Soft, nontender, nondistended, normoactive bowel sounds. No palpable organomegaly. MUSCULOSKELETAL: No joint swelling or deformity. EXTREMITIES: No cyanosis, clubbing, or pedal edema. NEUROLOGICAL: Gross neurological examination did not reveal any focal deficits. SKIN: No rashes. - Labs CBC & Chem 7: 05/04/18 15:24 05/04/18 15:24 Labs: Abnormal Lab Results - Last 24 Hours (Table) 05/05/18 05/05/18 05/06/18 Range/Units 17:19 20:05 06:52 POC Glucose (mg/dL) 130 H 114 H 113 H (75-99) mg/dL Microbiology - Last 24 Hours (Table) 05/03/18 01:20 Blood Culture - Preliminary Blood No Growth after 72 hours 05/03/18 01:05 Blood Culture - Preliminary Blood No Growth after 72 hours Assessment and Plan Plan: Assessment and Plan Assessment: 1. Status post left total ankle arthroplasty 2. Diabetes mellitus type 2 3. Coronary artery disease status post stent placement 4. Hypertension 5. Hyperlipidemia 6. History of rheumatic fever as a child 7. Extensive degenerative joint disease 8: Tachycardia with junctional rhythm. There is a dose of beta marianne. 9 most probably asymptomatic bacteriuria low probability of UTI patient completed antibiotic therapy for UTI. Patient is clinically doing well can be discharged from medicine perspective provided by MARAH necessary aspirin 81 mg this can urine as patient is getting 325 twice a day of aspirin as DVT prophylaxis post orthopedic surgery
== END 2018-05-06 12:26 | DRG 469 ==
LOC: 2ORMAIN 05-01 06:34 → 3SUR 05-01 12:39
PROVIDERS: ADMIT Orthopaedic Surgery; ATTEND Orthopaedic Surgery
PROC: 0LNT0ZZ Release Left Ankle Tendon, Open Approach (ICD-10-PCS; 2018-05-01)
PROC: 0KNT0ZZ Release Left Lower Leg Muscle, Open Approach (ICD-10-PCS; 2018-05-01)
PROC: 0SRG0JA Replacement of Left Ankle Joint with Synthetic Substitute, Uncemented, Open Approach (ICD-10-PCS; principal; 2018-05-01 08:30)
DX: M19.072 Primary osteoarthritis, left ankle and foot (principal); N39.0 Urinary tract infection, site not specified; E11.9 Type 2 diabetes mellitus without complications; E78.5 Hyperlipidemia, unspecified; H91.90 Unspecified hearing loss, unspecified ear; I10 Essential (primary) hypertension; I25.10 Atherosclerotic heart disease of native coronary artery without angina pectoris; Z82.49 Family history of ischemic heart disease and other diseases of the circulatory system; Z81.8 Family history of other mental and behavioral disorders; Z85.51 Personal history of malignant neoplasm of bladder; Z95.5 Presence of coronary angioplasty implant and graft; Z79.82 Long term (current) use of aspirin; Z79.84 Long term (current) use of oral hypoglycemic drugs; Z79.899 Other long term (current) drug therapy; M10.9 Gout, unspecified; M24.572 Contracture, left ankle; M21.072 Valgus deformity, not elsewhere classified, left ankle
CPT/HCPCS: 71046; 80048; 81001; 83036; 83735; 84484; 85025; 87040; 87086; 88300; 93005; 94760